=== PATIENT | female | born 1970 | race Caucasian/White ===

== ENCOUNTER → 2017-10-23 | Outpatient (CLI) | payer BC ==
[~2017-10-23] MED LIST: ALBUAER INH; FAMO-103 PO; GLC/500 PO
[2017-10-23 13:19] VITALS: BP 144/72; PULSE 79; TEMP 36.8; O2SAT 99
--- NOTE | 2017-10-23 14:02 | Radiation Oncology Follow-Up ---
Radiation Oncology Follow-Up Date of Visit Oct 23, 2017. Reason For Visit Annual follow-up Radiation Completion Date 09/19/12 Diagnosis (1) Breast cancer of upper-outer quadrant of left female breast Status: Resolved Onset Date: 01/11/2012 Stage: lll (A) Permanent Comment: Self detected left breast mass Biopsy revealing intermediate grade infiltrating ductal carcinoma Estrogen receptor negative, progesterone receptor negative, HER-2/osei positive Status post modified radical mastectomy and axillary dissection Stage [id number] stage IIIa Status post systemic chemotherapy comprised of Taxotere, Adriamycin and cyclophosphamide for 6 cycles followed by Herceptin for 1 year Status post completion of radiation therapy 09/19/2012 received 5040 cGy Status post placement of breast implant Last Edited By: Sarahy Coker on Oct 26, 2015 16:55 Interim History She has been doing well over this past year. She has noted no changes to the left implanted breast. She's had no changes to her right breast. She noted no masses or tenderness and no change of the axilla. She has noted no swelling of her arm. She is up-to-date on mammography for the right breast. She previously had some issues with shoulder tightness and cording. She had no complaints of discomfort or cording today. Allergies Coded Allergies: Tetanus Toxoid (Verified Allergy, Severe, STIFF JOINTS, 07/16/12) Sulfa Drugs (Verified Allergy, Intermediate, RASH, 07/16/12) RASH Penicillins (Verified Allergy, RASH, 07/16/12) Nitrofurantoin (Verified Adverse Reaction, Severe, HEADACHE, 07/16/12) Home Medications Scheduled Famotidine (Pepcid), 10 MG PO DAILY Metformin Hcl (Glucophage), 500 MG PO BID Scheduled PRN Albuterol (Proventil Hfa), 2 PUFFS INH Q4H PRN for Shortness of Breath Review of Systems Gastrointestinal: Symptoms: WNL Oral: Symptoms: No Problems Respiratory: Symptoms: WNL Other Respiratory: Chronic Cough from "winter allergies" Urinary: Symptoms: WNL Skin: Symptoms: No Problems Breast: Right Upper Arm Measurement: 31.7 Right Mid Arm Measurement: 26.0 Right Wrist Measurement: 16.5 Left Upper Arm Measurement: 32.0 Left Mid Arm Measurement: 26.0 Left Wrist Measurement: 16.3 Arm Dominence: Right Physical Exam Vital Signs Date Time Temp Pulse Resp B/P (MAP) Pulse Ox O2 Delivery O2 Flow Rate FiO2 10/23/17 13:19 36.8 79 16 144/72 99 Fatigue: None General Appearance: no apparent distress Eyes: normal inspection, EOMI ENT: normal ENT inspection, hearing grossly normal Neck: no adenopathy, thyroid normal Respiratory/Chest: lungs clear, no respiratory distress, no accessory muscle use Breast: Breast examination reveals the left implanted breast. There is mild retraction in the periphery of the implant. The nipple is tattooed. There are no masses or tenderness and no changes of the axilla. There is no telangiectasia. There is less cording noted. Using the [place] score cosmesis she has a fair outcome. The right breast showed no masses or tenderness and no axillary adenopathy. Cardiovascular: regular rate, rhythm, no gallop, no murmur Abdomen: non tender, soft Extremities: no pedal edema Neurologic/Psychiatric: no motor/sensory deficits, alert, normal mood/affect Skin: warm/dry Pain Management Patient Reports Pain: No Pain Management Plan She denies pain therefore requires no pain management. Laboratory Laboratory Results: not applicable Pathology Pathology Results: not applicable Imaging Imaging Studies: were reviewed, and pertinent findings noted below Imaging Comments Date/Time of Imaging Study Study Completed: 07/10/2017 9:07 AM [facility] PACS Image Narrative Comparison is made to images from 06/29/2016 (right) and images from 06/24/2015 (right) and images from 06/04/2014 (right) and images from 01/21/2013 (right). There is no significant interval change. Right Breast Findings: The breast is heterogeneously dense (51% - 75% fibroglandular). This may lower the sensitivity of mammography. No significant masses, calcifications or other abnormalities are seen. Authenticated By Authenticating Date Authenticating Time Reading Providers(s) JAYME LIZ MD 07-10-2017 09:16 JAYME LIZ MD IMPRESSION: RIGHT BREAST Negative, no evidence of malignancy. Normal interval follow-up is recommended in 12 months. OVERALL ASSESSMENT - CATEGORY 1 - NEGATIVE END OF IMPRESSION This digital mammogram has been analyzed with the computer aided detection system. This notice contains the results of your recent mammogram, including information about breast density. If your mammogram shows that your breast tissue is dense, you should know that dense breast tissue is a common finding and is not abnormal. Statistics show many women could have dense or highly dense breasts. Dense breast tissue can make it harder to find cancer on a mammogram and may be associated with an increased risk of cancer. This information about the result of your mammogram is given to you to raise your awareness and to inform your conversations with your physician. Together, you can decide which screening options are right for you, based on your mammogram results, individual risk factors or physical examination. A report of your results was sent to your physician. Your mammographic breast density on today's study is described above. There are four categories of breast density on mammography. Fatty breasts and those with scattered fibroglandular tissue are not considered dense. Heterogeneously dense or extremely dense tissue is considered "dense". Please understand that assessment of breast density may vary from year to year. Assessment & Plan Plan: Continue annual mammography for the right breast. Continue regular follow -up with Dr. Barger, Dr. Bustamante, and medical oncology. A follow-up appointment with our office was not given. She may call if she has any questions or concerns we'll be happy to see her. Total Time In Follow-Up I spent 20 minutes speaking to the patient performing examination. I spent 15 minutes reviewing information and completing this note. Copy To Goldie Bustamante MD; Dylan Felix M.D.; Evgeny Romero M.D. Problem Qualifiers (1) Breast cancer of upper-outer quadrant of left female breast: Estrogen receptor status: negative Qualified Codes: C50.412 - Malignant neoplasm of upper-outer quadrant of left female breast; Z17.1 - Estrogen receptor negative status [ER-]
== END | disposition home or self-care (01) ==
LOC: C.ONC 13:10
PROVIDERS: ATTEND Physician Assistant Medical
DX: Z08 Encounter for follow-up examination after completed treatment for malignant neoplasm (principal); Z92.3 Personal history of irradiation; Z85.3 Personal history of malignant neoplasm of breast